=== PATIENT | male | born 1970 | race Caucasian/White ===

== ENCOUNTER 2017-05-04 03:29 | Emergency (ER) | payer OTHER, SELFPAY ==
[~2017-05-04] VITALS: Ht 167.6 cm; Wt 65.0 kg
[2017-05-04 03:31] VITALS: BP 129/81
== END 2017-05-04 04:13 | disposition home or self-care (01) ==
LOC: ED 04:07
DX: H10.211 Acute toxic conjunctivitis, right eye (principal); H10.212 Acute toxic conjunctivitis, left eye; Z77.098 Contact with and (suspected) exposure to other hazardous, chiefly nonmedicinal, chemicals
CPT/HCPCS: 99281